=== PATIENT | female | born 1965 | race Caucasian/White ===

== ENCOUNTER → 2017-03-16 | Day surgery (SDC) | payer OTHER ==
[2017-02-23 14:54] VITALS: Ht 167.6 cm; Wt 77.3 kg
[~2017-03-16] VITALS: Ht 167.6 cm; Wt 77.3 kg
[~2017-03-16] MED LIST: ALPR0.25 PO; BUPIVACAINE 0.25% 2.5MG/ML PF 10 ML VIAL ONE; CALC-51 PO; IOPAMIDOL INJ 61% 15 ML VIAL ONE; LIDOCAINE HCL 1% MPF 5 ML VIAL ONE; METHYLPREDNISOLONE ACETATE 80 MG/ML VIAL ONE; MISCCAP80 PO; MULTTAB58 PO; OMEG10007 PO; VITAMIN D PO; ZCR5 PO
--- NOTE | 2017-03-16 14:43 | History & Physical Bridge - [place] ---
H&P Re-Evaluation Bridge Note: I have examined the patient, reviewed the History & Physical and in the interval since the performance of the History & Physical I have noted the following changes of clinical significance: No changes noted
[2017-03-16 15:07] VITALS: TEMP 36.7
--- NOTE | 2017-03-16 15:11 | Discharge Instructions ---
Discharge Instructions Date of Service Mar 16, 2017. Visit Reason for Visit: Lumbar Spondylolisthesis Discharge Discharge Diagnosis / Problem: low back pain Discharge Goals Goal(s): Decrease discomfort, Improve function Activity Recommendations Activity Limitations: resume your previous activity Anesthesia . Post Anesthesia Instructions: If you have had General Anesthesia or IV Sedation: * Do not drive today. * Resume driving when surgeon permits. * Do not make important decisions or sign legal documents today. * Call surgeon for: 1. Temperature elevations greater than 101 degrees F. 2. Uncontrollable pain. 3. Excessive bleeding. 4. Persistent nausea and vomiting. 5. Medication intolerance (nausea, vomiting or rash). * For nausea and vomiting use only clear liquids such as: tea, soda, bouillon until nausea subsides, then gradually increase diet as tolerated. * If you have any concerns or questions, call your surgeon's office. If physician is unavailable and it is an emergency, call 911 or go to the nearest emergency room. . Diet Recommendations Recommended Home Diet: resume previous diet Procedures Procedures Performed: Left L5-S1 Facet Joint Injection Pending Studies Studies pending at discharge: no Medical Emergencies . Who to Call and When: Medical Emergencies: If at any time you feel your situation is an emergency, please call 911 immediately. . Non-Emergent Contact Non-Emergency issues call your: Specialist . . "Provider Documentation" section prepared by Lance Benavidez. .
[2017-03-16 15:18] VITALS: BP 130/82; PULSE 68; O2SAT 100
--- NOTE | 2017-03-16 17:26 | OPERATIVE REPORT ---
DATE OF OPERATION: 03/16/2017 PREOPERATIVE DIAGNOSES: Low back pain, left L5-S1 facet arthropathy. POSTOPERATIVE DIAGNOSIS: Same. PROCEDURE: Left L5-S1 facet joint injection under fluoroscopic guidance. INDICATIONS: The patient is a 51-year-old white female who had a left L5-S1 facet joint about a year ago had great relief up until just recently where she is having increasing back pain, and she presents today for another injection to provide her with similar long-lasting relief. PHYSICAL EXAMINATION: Pleasant female seated comfortably in no apparent distress. She has point tenderness to palpation of the L5-S1 facet area on the left is worse with extension and left-sided bending, relieved with forward flexion to the right. Normal motor and sensory exam. CONSENT: Verbal and written consent was obtained from the patient. Risks and benefits were reviewed. Risks include but are not limited to abscess and allergic reaction. The patient wishes to proceed. PROCEDURE: The patient was taken back to the special procedures room of [facility] where she was maintained in a prone position. Backside was cleansed with Betadine x3 and a dry sterile dressing was applied. Fluoroscope was used to identify the L5-S1 facet in an oblique projection of the left side. Overlying skin of the facet joint was anesthetized with 5 mL of lidocaine 1% with a 25 gauge 1.5-inch needle. A 25 gauge 3.5 inch spinal needle was then directed into the joint under fluoroscopic guidance. Once I was within the joint, a little Isovue was injected in which showed intra-articular and a little medial spread outside of the joint. She then underwent injection after negative aspiration of 40 mg of Depo-Medrol in 0.5 mL and 0.5 mL of bupivacaine 0.25%. Injection was well tolerated. DISPOSITION: 1. The patient is taken out into the discharge recovery area where she will be discharged home once discharge criteria have been met. 2. Follow up in the [facility] office in 2-4 weeks. I attest to the content of the Intraoperative Record and any orders documented therein. Any exception s are noted below.
== END | disposition home or self-care (01) ==
LOC: X.SURG 13:55
PROVIDERS: ATTEND Physical Medicine & Rehabilitation
DX: M47.816 Spondylosis without myelopathy or radiculopathy, lumbar region (principal); M54.5 Low back pain; G89.29 Other chronic pain

== ENCOUNTER → 2018-02-07 | Day surgery (SDC) | payer OTHER ==
[2018-01-29 15:22] VITALS: Ht 167.6 cm; Wt 77.3 kg
[~2018-02-07] VITALS: Ht 167.6 cm; Wt 77.3 kg
[~2018-02-07] MED LIST changes: -BUPIVACAINE 0.25% 2.5MG/ML PF 10 ML VIAL ONE; +BUPIVACAINE 0.25% 30 ML VIAL ONE; -ZCR5 PO
--- NOTE | 2018-02-07 14:36 | [facility] Post Operative Brief Note ---
Immediate Operative Summary Operative Date Feb 07, 2018. Pre-Operative Diagnosis Chronic low back pain; Left L5-S1 facet joint pain Post-Operative Diagnosis Same Procedure(s) Performed Left L5-S1 Facet Joint Injection Surgeon Dr Benavidez Grinder Set Up Operator Gear Tool Surgeon(s) None Estimated Blood Loss 0 Findings Consistent with Post-Op Diagnosis Specimens NA Drains None Anesthesia Type Local Complication(s) none Disposition Disposition:
--- NOTE | 2018-02-07 14:38 | Discharge Instructions ---
Discharge Instructions Date of Service Feb 07, 2018. Visit Reason for Visit: Lumbar Region Spondylopathies Discharge Discharge Diagnosis / Problem: Low back pain Discharge Goals Goal(s): Decrease discomfort, Improve function Activity Recommendations Activity Limitations: resume your previous activity Anesthesia . Post Anesthesia Instructions: If you have had General Anesthesia or IV Sedation: * Do not drive today. * Resume driving when surgeon permits. * Do not make important decisions or sign legal documents today. * Call surgeon for: 1. Temperature elevations greater than 101 degrees F. 2. Uncontrollable pain. 3. Excessive bleeding. 4. Persistent nausea and vomiting. 5. Medication intolerance (nausea, vomiting or rash). * For nausea and vomiting use only clear liquids such as: tea, soda, bouillon until nausea subsides, then gradually increase diet as tolerated. * If you have any concerns or questions, call your surgeon's office. If physician is unavailable and it is an emergency, call 911 or go to the nearest emergency room. . Diet Recommendations Recommended Home Diet: resume previous diet Procedures Procedures Performed: Left L5-S1 Facet Joint Injection Pending Studies Studies pending at discharge: no Medical Emergencies . Who to Call and When: Medical Emergencies: If at any time you feel your situation is an emergency, please call 911 immediately. . Non-Emergent Contact Non-Emergency issues call your: Specialist . . "Provider Documentation" section prepared by Lance Benavidez. .
[2018-02-07 14:39] VITALS: TEMP 36.5
[2018-02-07 14:51] VITALS: BP 132/85; PULSE 66; O2SAT 96
--- NOTE | 2018-02-07 15:05 | OPERATIVE REPORT ---
DATE OF OPERATION: 02/07/2018 PREOPERATIVE DIAGNOSES: Chronic low back pain, left L5-S1 facet joint pain. POSTOPERATIVE DIAGNOSES: Chronic low back pain, left L5-S1 facet joint pain. PROCEDURE: Left L5-S1 facet joint injection. INDICATIONS: Patient is a 52-year-old white female who was injected with a facet joint injection in April 2017 and did well up into early November. She was doing a lot of twisting and turning, picking blueberries and she presents today for a facet joint injection to provide her with relief. PHYSICAL EXAMINATION: GENERAL: Pleasant female, seated comfortably. MUSCULOSKELETAL: Lumbar paraspinal muscles were palpated. She had tenderness to palpation of the left L5-S1 facet, which was worse with extension, rotation. Sciatic notch was minimally sensitive with forward flexion. She had no focal weakness of the lower extremities. She had intact sensation distally with negative seated straight leg raises. CONSENT: Verbal and written consent was obtained from the patient. Risks and benefits were reviewed. Risks include but are not limited to abscess and allergic reaction. Patient wishes to proceed. PROCEDURE IN DETAIL: Patient was taken to the special procedures room at [facility] where she was maintained in a prone position. Backside was cleansed with Betadine x3 and a dry sterile dressing was applied. Fluoroscope was used to identify the L5-S1 facet joint and the overlying skin was anesthetized with 4 mL of lidocaine 1% with a 25 gauge 1.5-inch needle. A 25 gauge 3.5 inch spinal needle was then directed under fluoroscopic guidance into the joint. Isovue 300 contrast less than 0.25 mL indicated it to be intra-articular. She then underwent injection after negative aspiration of 40 mg of Depo-Medrol and 0.5 mL of bupivacaine 0.25%. Injection was well tolerated. DISPOSITION: 1. Patient is taken out into the discharge recovery area. She will be discharged home once discharge criteria are met. 2. Follow up in the [facility] office in 4 weeks' time. I attest to the content of the Intraoperative Record and any orders documented therein. Any exception s are noted below.
== END | disposition home or self-care (01) ==
LOC: X.SURG 13:32
PROVIDERS: ATTEND Physical Medicine & Rehabilitation
DX: M54.5 Low back pain (principal); M51.86 Other intervertebral disc disorders, lumbar region